=== PATIENT | female | born 1985 ===

== ENCOUNTER 2017-12-21 16:27 | Emergency (ER) | payer MEDICAID ==
[2017-12-21] MEDS ORDERED: AUGMENTIN 875 MG PO ONE (19:29)
[2017-12-21] MEDS ORDERED: DELTASONE PO ONE (19:29)
--- NOTE | 2017-12-21 19:34 | Emergency Department Report ---
- General Chief Complaint: Upper Respiratory Infection Stated Complaint: COUGHING/CHEST PAIN Time Seen by Provider: 12/21/17 19:29 Source: patient Mode of arrival: Ambulatory Limitations: No Limitations - History of Present Illness Initial Comments: Patient is a 32-year-old black female who has a cough and congestion for the last week. Patient states that her daughter was sick as well was already improved. Patient is a smoker. Patient states that she has some generalized congestion and runny nose with a deep cough that sometimes hurts when she coughs. She denies any fever or body aches and sore throat earache or sinus tenderness at this time. Patient states that she was coughing so much this morning that she vomited once. - Related Data Previous Rx's Medication Instructions Recorded Last Taken Type ALBUTEROL Inhaler (OR & NICU) 2 puff IH QID PRN #1 inhalation 12/21/17 Unknown Rx [ProAir HFA Inhaler] Amoxicillin/Potassium Clav 1 each PO BID #14 tablet 12/21/17 Unknown Rx [Augmentin 875-125 Tablet] HYDROcodone/APAP 5-325 [Echola 1 each PO Q6HR PRN #12 tablet 12/21/17 Unknown Rx 5/325] predniSONE [Deltasone] 20 mg PO QDAY #5 tab 12/21/17 Unknown Rx Allergies Allergy/AdvReac Type Severity Reaction Status Date / Time No Known Allergies Allergy Unverified 12/21/17 16:32 ED Review of Systems ROS: Stated complaint: COUGHING/CHEST PAIN Other details as noted in HPI Comment: All other systems reviewed and negative ED Past Medical Hx - Past Medical History Previous Medical History?: No - Surgical History Past Surgical History?: Yes Additional Surgical History: TUBAL - Social History Smoking Status: Current Every Day Smoker Substance Use Type: None - Medications Home Medications: Home Medications Medication Instructions Recorded Confirmed Last Taken Type ALBUTEROL Inhaler (OR & NICU) 2 puff IH QID PRN #1 inhalation 12/21/17 Unknown Rx [ProAir HFA Inhaler] Amoxicillin/Potassium Clav 1 each PO BID #14 tablet 12/21/17 Unknown Rx [Augmentin 875-125 Tablet] HYDROcodone/APAP 5-325 [Echola 1 each PO Q6HR PRN #12 tablet 12/21/17 Unknown Rx 5/325] predniSONE [Deltasone] 20 mg PO QDAY #5 tab 12/21/17 Unknown Rx ED Physical Exam - General Limitations: No Limitations General appearance: alert, in no apparent distress - Head Head exam: Present: atraumatic, normocephalic - Eye Eye exam: Present: normal appearance - ENT ENT exam: Present: mucous membranes moist - Neck Neck exam: Present: normal inspection - Respiratory Respiratory exam: Present: normal lung sounds bilaterally. Absent: respiratory distress, wheezes, rales, rhonchi, chest wall tenderness - Cardiovascular Cardiovascular Exam: Present: regular rate, normal rhythm, normal heart sounds. Absent: systolic murmur, diastolic murmur, rubs, gallop - GI/Abdominal GI/Abdominal exam: Present: soft, normal bowel sounds. Absent: distended, tenderness, guarding - Extremities Exam Extremities exam: Present: normal inspection - Back Exam Back exam: Present: normal inspection - Neurological Exam Neurological exam: Present: alert, oriented X3 - Psychiatric Psychiatric exam: Present: normal affect, normal mood - Skin Skin exam: Present: warm, dry, intact, normal color. Absent: rash ED Course Vital Signs 12/21/17 16:33 Temperature 98.4 F Pulse Rate 104 H Respiratory 18 Rate Blood Pressure 107/75 O2 Sat by Pulse 96 Oximetry ED Medical Decision Making - Medical Decision Making Patient's lungs are clear her O2 sats is within normal limits. Patient will be empirically treated for smoking bronchitis with Augmentin as well as prednisone and some meds for cough the patient be discharged home. Critical care attestation.: If time is entered above; I have spent that time in minutes in the direct care of this critically ill patient, excluding procedure time. ED Disposition Clinical Impression: Acute bronchitis Qualifiers: Bronchitis organism: unspecified organism Qualified Code(s): J20.9 - Acute bronchitis, unspecified Disposition: DC-01 TO HOME OR SELFCARE Is pt being admited?: No Does the pt Need Aspirin: No Condition: Stable Instructions: Acute Bronchitis (ED) Referrals: PRIMARY CARE, [Primary Care Provider] - 3-5 Days Time of Disposition: 19:34
[2017-12-21 19:44] VITALS: BP 130/75
== END 2017-12-21 19:44 | disposition home or self-care (01) ==
LOC: ED 16:27
DX: J20.9 Acute bronchitis, unspecified (principal); F17.200 Nicotine dependence, unspecified, uncomplicated; Z98.51 Tubal ligation status
CPT/HCPCS: 99282; J7512